=== PATIENT | male | born 1985 | race Caucasian/White ===

== ENCOUNTER 2018-08-11 23:42 | Emergency (ER) | payer OTHER ==
[~2018-08-11] VITALS: Ht 185.4 cm; Wt 104.5 kg
[~2018-08-11 23:42] MED LIST: ATIVAN 0.50.5 MG/TAB PO; DURICEF PO; LORTAB 5/500 501 TAB PO; NO HOME MEDICATIONS
[2018-08-11 23:46] VITALS: TEMP 97.9
[2018-08-12 02:03] VITALS: BP 132/86; PULSE 87
== END 2018-08-12 02:03 | disposition home or self-care (01) ==
LOC: COL.ER 23:42
DX: S06.0X0A Concussion without loss of consciousness, initial encounter (principal); S01.01XA Laceration without foreign body of scalp, initial encounter; Z23 Encounter for immunization; F17.210 Nicotine dependence, cigarettes, uncomplicated; W18.39XA Other fall on same level, initial encounter; W22.8XXA Striking against or struck by other objects, initial encounter; Y92.009 Unspecified place in unspecified non-institutional (private) residence as the place of occurrence of the external cause

== ENCOUNTER 2018-08-22 16:51 | Emergency (ER) | payer OTHER ==
[2018-08-22 17:01] VITALS: BP 135/79; PULSE 93; TEMP 98.6
== END 2018-08-22 17:14 | disposition home or self-care (01) ==
LOC: COL.ER 16:51
DX: S01.01XD Laceration without foreign body of scalp, subsequent encounter (principal); X58.XXXD Exposure to other specified factors, subsequent encounter

== ENCOUNTER → 2019-12-11 | Outpatient (CLI) | payer OTHER | LOC: COL.RAD 11:08 | DX: J34.89 Other specified disorders of nose and nasal sinuses (principal) ==